=== PATIENT | male | born 1935 | race Caucasian/White ===

== ENCOUNTER 2023-09-11 13:48 | Inpatient (IN) | payer OTHER ==
[2023-09-11 14:22] LABS: HEMATOCRIT 45.5 % (35.4-49); HEMOGLOBIN 15.1 G/dL (11.7-16.9); MCH 34.3 pg (25.7-33.7); MCHC 33.1 g/dl (32.0-35.9); MEAN CELL VOLUME 103.7 fl (80-96); MEAN PLT VOLUME 8.8 fl (7.5-11.1); PLATELET COUNT 166.8 10^3/uL (134-434); RBC 4.39 10^6/uL (4.00-5.60); RDW 13.4 % (11.9-15.9); WHITE BLOOD COUNT 5.2 10^3/uL (4.0-10.8)
[2023-09-11 14:55] LABS: INR 1.38 (0.83-1.09); PROTHROMBIN TIME (PATIENT) 15.9 SEC (9.7-13.0)
[2023-09-11 15:09] LABS: ALBUMIN 3.7 g/dl (3.4-5.0); BILIRUBIN,TOTAL 0.8 mg/dl (0.2-1); CALCIUM 8.9 mg/dl (8.5-10.1); CREATININE 0.8 mg/dl (0.6-1.3); POTASSIUM 4.2 mmol/L (3.5-5.1); TOT PROT 5.8 g/dl (6.4-8.2)
[2023-09-11 16:36] LABS: N-TERMINAL BNP 861.2 pg/ml (5-450)
[2023-09-11 16:53] LABS: ANISOCYTOSIS 1+; MACROCYTOSIS 1+
[2023-09-11 16:54] LABS: PLATELET ESTIMATE ADEQUATE
[2023-09-11 19:57] VITALS: BMI 27.0
[2023-09-11] MEDS: APIXABAN 5 MG TABLET PO SCH (21:24)
[2023-09-11] MEDS: TAMSULOSIN HCL 0.4 MG CAP PO SCH (21:24)
[2023-09-11] MEDS: ATORVASTATIN CA 20 MG TABLET (FP) PO SCH (21:24)
[2023-09-11] MEDS ORDERED: HEPARIN NA (PORCINE) 5,000 UNITS/ML 1ML VIAL SQ SCH (22:00)
[2023-09-12] MEDS ORDERED: ACETAMINOPHEN 325 MG TABLET (FP) PO PRN (07:08)
[2023-09-12] MEDS ORDERED: ACETAMINOPHEN 1000 MG/100 ML BAG IVPB ONE (07:09)
[2023-09-12 09:32] VITALS: RESP 18
[2023-09-12 09:33] LABS: HEMATOCRIT 40.4 % (35.4-49); HEMOGLOBIN 13.5 G/dL (11.7-16.9); MCH 34.7 pg (25.7-33.7); MCHC 33.4 g/dl (32.0-35.9); MEAN CELL VOLUME 104.2 fl (80-96); MEAN PLT VOLUME 9.4 fl (7.5-11.1); PLATELET COUNT 123.4 10^3/uL (134-434); RBC 3.88 10^6/uL (4.00-5.60); RDW 13.7 % (11.9-15.9); WHITE BLOOD COUNT 4.9 10^3/uL (4.0-10.8)
[2023-09-12] MEDS: ESCITALOPRAM OXALATE 10 MG TABLET PO SCH (09:39)
[2023-09-12] MEDS: amLODIPine BESYLATE 5 MG TABLET (FP) PO SCH (09:39)
[2023-09-12] MEDS: metoPROLOL SUCCINATE 25 MG TAB.SR.24H (FP) PO SCH (09:39)
[2023-09-12] MEDS: APIXABAN 5 MG TABLET PO SCH ×2 (09:39→21:07)
[2023-09-12] MEDS: TAMSULOSIN HCL 0.4 MG CAP PO SCH (21:07)
[2023-09-12] MEDS: ATORVASTATIN CA 20 MG TABLET (FP) PO SCH (21:07)
[2023-09-13] MEDS: metoPROLOL SUCCINATE 25 MG TAB.SR.24H (FP) PO SCH (09:23)
[2023-09-13] MEDS: ESCITALOPRAM OXALATE 10 MG TABLET PO SCH (09:23)
[2023-09-13] MEDS: APIXABAN 5 MG TABLET PO SCH (09:23)
[2023-09-13] MEDS: amLODIPine BESYLATE 5 MG TABLET (FP) PO SCH (09:23)
[2023-09-13 10:04] LABS: ALBUMIN 3.4 g/dl (3.4-5.0); BILIRUBIN,TOTAL 0.8 mg/dl (0.2-1); CALCIUM 8.5 mg/dl (8.5-10.1); CREATININE 0.6 mg/dl (0.6-1.3); POTASSIUM 3.6 mmol/L (3.5-5.1); TOT PROT 5.2 g/dl (6.4-8.2)
[2023-09-13 11:12] LABS: BASO % 0.6 % (0-2.0); EOS % 2.2 % (0-4.5); HEMATOCRIT 39.3 % (35.4-49); LYMPH % 30.6 % (8-40); MCH 34.4 pg (25.7-33.7); MCHC 32.9 g/dl (32.0-35.9); MEAN CELL VOLUME 104.5 fl (80-96); MONO % 13.7 % (3.8-10.2); NEUT % 52.9 % (42.8-82.8); PLATELET COUNT 161 10^3/uL (134-434); RBC 3.76 M/mm3 (4.00-5.60); WHITE BLOOD COUNT 5.4 K/mm3 (4.0-10.0)
[2023-09-13 12:54] VITALS: BP 154/66; PULSE 68; TEMP 97.9
== END 2023-09-13 13:00 | disposition home or self-care (01) | DRG 312 ==
LOC: FER 13:48 → UNDOADMIN 17:27 → FM/S 17:27
PROVIDERS: ADMIT Internal Medicine
DX: R55 Syncope and collapse (principal); E78.5 Hyperlipidemia, unspecified; Z79.01 Long term (current) use of anticoagulants; F32.A Depression, unspecified; N40.0 Benign prostatic hyperplasia without lower urinary tract symptoms; I48.0 Paroxysmal atrial fibrillation; I45.10 Unspecified right bundle-branch block; T44.6X5A Adverse effect of alpha-adrenoreceptor antagonists, initial encounter
CPT/HCPCS: 0241U-QW; 36415; 70450-TC; 71045-TC-FY; 80053; 82550; 82962; 83735; 83880; 84439; 84484; 85025; 85027; 85610; 85730; 93005; 97116-GP; 97162-GP; 99285-25